=== PATIENT | male | born 1995 | race Caucasian/White ===

== ENCOUNTER 2016-06-27 17:44 | Emergency (ER) | payer OTHER ==
[~2016-06-27 17:44] MED LIST: ALBUTEROL SULFATE INH; ALBUTEROL0.83 MG/ML INH; ALBUTEROL17 GM; AUGMENTIN 875-11 TAB PO; GUIATUSS AC SY120 ML PO; IMITREX; IMITREX50 MG; NORCO 5/325 TAB1 TAB PO; NORTRIPTYLINE H50 MG; PAMELOR10 MG PO; PAMELOR25 MG; PAMELOR25 MG PO; SINGULAIR10 MG; SINGULAIR10 MG PO; SINGULAIR5 MG; TAMIFLU75 MG PO; ZYRTEC10 MG; [UNRECOGNIZED DRUG - OTHER]
[2016-06-27 18:15] LABS: BASO % 0.4 % (0-2); EOS % 0.9 % (0-7); EOSINOPHIL ABSOLUTE COUNT 0.1 tho/cmm (0.0-0.7); HGB-HEMOGLOBIN 15.7 gm/dl (13.5-17.0); IMMATURE GRANULOCYTES ABSOLUTE 0.02 tho/cmm (0-0.03); IMMATURE GRANULOCYTES PERCENT 0.2 % (0-0.3); LYMPH % 27.1 % (20-45); LYMPH ABSOLUTE COUNT 2.5 tho/cmm (0.8-4.5); MCH (MEAN CORPUSCULAR HGB) 31.1 pg (28.0-32.0); MCHC MEAN CORPUSCULAR HGB CONC 34.9 % (32.0-36.0); MCV (MEAN CELL VOLUME) 89.1 fl (82.0-96.0); MONO % 4.7 % (0-12); MONOCYTE ABSOLUTE COUNT 0.4 tho/cmm (0.0-1.2); NEUTROPHIL ABSOLUTE COUNT 6.3 tho/cmm (1.6-8.0); NEUTROPHIL-AUTOMATED 6.3 tho/cmm (1.6-8.0); NEUTROPHILS % 66.7 % (40-80); PLATELET COUNT 182 tho/cmm (150-450); RED BLOOD COUNT 5.05 mil/cmm (4.40-5.70); RED CELL DISTRIBUTION WIDTH 12.6 % (12.4-16.4); WHITE BLOOD COUNT 9.4 tho/cmm (4.0-10.0)
[2016-06-27 18:25] LABS: ANION GAP 13 mmol/L (0-20); BLOOD UREA NITROGEN 14 mg/dl (6-24); CALCIUM 8.9 mg/dl (8.5-10.5); CARBON DIOXIDE-VENOUS 30 mmol/L (22-32); CHLORIDE 103 mmol/l (96-110); CREATININE 1.25 mg/dl (0.60-1.30); GLUCOSE 106 mg/dL (70-110); POTASSIUM 4.6 mmol/L (3.7-5.1); SODIUM 141 mmol/L (135-145); eGFR VALUE FOR BLACK >90 mL/Min
[2016-06-27] MEDS ORDERED: PEPCID40 M1 PO (19:48)
[2016-06-27] MEDS ORDERED: PREDNISONE20 M1 PO (19:48)
[2016-06-27] MEDS ORDERED: ZYRTEC10 M7 PO (19:48)
== END 2016-06-27 19:57 ==
LOC: EDMED 17:44
PROVIDERS: Emergency Medicine
DX: R09.1 Pleurisy (principal); L50.9 Urticaria, unspecified; J45.909 Unspecified asthma, uncomplicated; Z88.2 Allergy status to sulfonamides; Z79.51 Long term (current) use of inhaled steroids; Z79.899 Other long term (current) drug therapy; F17.210 Nicotine dependence, cigarettes, uncomplicated
CPT/HCPCS: Q9967